=== PATIENT | male | born 1945 | race Caucasian/White ===

== ENCOUNTER 2017-07-18 07:02 | Day surgery (SDC) | payer OTHER ==
[~2017-07-18] VITALS: Ht 167.6 cm; Wt 85.9 kg
[~2017-07-18 07:02] MED LIST: ASPI1TAB PO; FINA5TAB2 PO; FLOM5CAP PO; HYDR25TAB PO; LOSA50TA20 PO; MELO7.5T7 PO; SIMV20TA2 PO
[2017-07-18] MEDS ORDERED: LR 1,000 ML IV SCH ×2 (07:15→09:30)
[2017-07-18] MEDS ORDERED: fentaNYL 100 MCG/2 ML INJECTION (J3010) As Ordered ONE (08:38)
[2017-07-18] MEDS ORDERED: PROPOFOL 200 MG/20 ML VIAL As Ordered ONE (08:38)
[2017-07-18] MEDS ORDERED: LIDOCAINE 2% INJ 100 MG/5 ML SDV (FOR ANES.) As Ordered ONE (08:38)
[2017-07-18] MEDS ORDERED: PHENYLephrine HCL 500 MCG/5 ML (100MCG/ML) SYRINGE (J2370) As Ordered ONE (08:38)
[2017-07-18] MEDS ORDERED: MIDAZOLAM INJ 2 MG/2 ML VIAL (J2250) As Ordered ONE (08:38)
[2017-07-18] MEDS ORDERED: ePHEDrine SULFATE 25 MG/5 ML(5MG/ML) SYRINGE As Ordered ONE (08:54)
[2017-07-18] MEDS ORDERED: ONDANSETRON 4MG/2ML VIAL (J2405) As Ordered ONE (08:57)
[2017-07-18] MEDS ORDERED: MEPERIDINE INJ 25 MG/ML VIAL (J2175) IV PRN (09:30)
[2017-07-18] MEDS ORDERED: ONDANSETRON 4MG/2ML VIAL (J2405) IV PRN (09:30)
[2017-07-18] MEDS ORDERED: fentaNYL 100 MCG/2 ML INJECTION (J3010) IV PRN (09:30)
[2017-07-18] MEDS ORDERED: METOCLOPRAMIDE INJ 10MG/2ML VIAL (J2765) IV PRN (09:30)
[2017-07-18] MEDS ORDERED: ACETAMINOPHEN TAB 650MG DOSE (2X325MG) PO PRN (09:30)
[2017-07-18] MEDS ORDERED: PERCOCET 5MG/325MG TAB PO PRN (09:30)
--- NOTE | 2017-07-18 09:36 | RO ---
DATE OF PROCEDURE: 07/18/2017 PREPROCEDURE DIAGNOSIS: Bladder stone. POSTPROCEDURE DIAGNOSIS: Bladder stone. PROCEDURE: Cystoscopy, cystolitholapaxy (between 2-5 cm), urethral meatal dilation. SURGEON: Dr. Piero Vieyra RPG PROGRAMMER ANALYST: None. ANESTHESIA: General. OPERATIVE INDICATIONS: This is a 71-year-old male who was found to have a large bladder stone on recent CT scan. It was recommended he be brought to the operating room today for the above listed procedure. DESCRIPTION OF PROCEDURE: The patient was brought to the operating room where general anesthesia was induced. Prophylactic antibiotics were infused. He was placed in dorsal lithotomy position, prepped and draped in the usual sterile fashion. At this point, I inserted a rigid cystoscope and examine the bladder thoroughly and there was a large bladder stone approximately 3-4 cm in size at the base of the bladder. There was no other abnormality seen within the bladder. Of note, the patient had trilobar benign prostatic hyperplasia and a median lobe. At this point, the cystoscope was traded out and I tried to go in with a nephroscope and this would not go into the urethral meatus because of the size. At this point, I had to dilate the urethral meatus to [id number]-[place] to get the nephroscope in. Once I dilated it with metal sounds, I then went in with the nephroscope and then I utilized the [employer] to fragment the stone into several smaller pieces and suction all the fragments out. Once all of the stone fragments were removed, the nephroscope was removed and I went back in with a rigid cystoscope. All of the stone fragments had been removed. There was a small amount of bleeding within the bladder but nothing significant. At this point, the bladder was emptied of all fluid and this marked the conclusion of the procedure. The patient was then taken out of dorsal lithotomy position, awakened from anesthesia and transported to the recovery room in stable condition. ESTIMATED BLOOD LOSS: 0 mL. COMPLICATIONS: None. SPECIMENS: Bladder stones. PLAN: The patient will followup in the clinic for a postoperative appointment to discuss stone results. TRI
[2017-07-18 10:30] VITALS: BP 128/80
== END 2017-07-18 10:49 | disposition home or self-care (01) ==
LOC: M SDC 07:02
PROVIDERS: ATTEND Urology
DX: N21.0 Calculus in bladder (principal); N35.9 Urethral stricture, unspecified; I10 Essential (primary) hypertension; E78.5 Hyperlipidemia, unspecified; K21.9 Gastro-esophageal reflux disease without esophagitis; N40.0 Benign prostatic hyperplasia without lower urinary tract symptoms; E11.9 Type 2 diabetes mellitus without complications; I35.0 Nonrheumatic aortic (valve) stenosis; Z79.899 Other long term (current) drug therapy; Z79.82 Long term (current) use of aspirin; Z87.81 Personal history of (healed) traumatic fracture
CPT/HCPCS: 52318; 82360; 88300; J2250; J2370; J2405; J3010

== ENCOUNTER → 2018-05-18 | Outpatient (REF) | payer OTHER ==
[2018-05-18 14:31] LABS: AMORPHOUS SEDIMENT MODERATE (NEGATIVE); APPEARANCE, URINE CLOUDY (CLEAR); BACTERIA, URINE AUTO 3+ (NEGATIVE); BILIRUBIN, URINE AUTO NEGATIVE (NEGATIVE); BLOOD, URINE BLOOD NEGATIVE (NEGATIVE); COLOR, URINE YELLOW (YELLOW); GLUCOSE, URINE (UA) AUTO NEGATIVE (NEGATIVE); KETONE, URINE AUTO NEGATIVE (NEGATIVE); LEUKOCYTE ESTERASE, URINE AUTO 3+ (NEGATIVE); MUCUS, URINE SMALL (NEGATIVE); NITRITE, URINE AUTO POSITIVE (NEGATIVE); PROTEIN, URINE AUTO NEGATIVE (NEGATIVE); RBC, URINE AUTO 5 /HPF (0-3); SPECIFIC GRAVITY URINE AUTO 1.017 (1.002-1.035); SQUAMOUS EPITHELIAL CELL UR AU 0 /HPF (0-6); UROBILINOGEN, URINE AUTO 0.2 mg/dL (0.0-2.0); WBC, URINE AUTO 86 /HPF (0-3)
== END ==
LOC: M SMT 13:38
DX: R39.15 Urgency of urination (principal); R35.0 Frequency of micturition
CPT/HCPCS: 81001

== ENCOUNTER → 2021-05-13 | Outpatient (REF) | payer MEDICARE, MEDICAID ==
[~2021-05-13] MED LIST changes: -ASPI1TAB PO; +ASPI81TA26 PO; +FLOM0.4C39 PO; -FLOM5CAP PO; +HYDR-3490 PO; -HYDR25TAB PO; -LOSA50TA20 PO; +LOSA50TA88 PO; -SIMV20TA2 PO; +SIMV20TA22 PO
[2021-05-13 13:50] LABS: PERCENT SATURATION 28.7 % (19.7-50.0)
== END ==
LOC: M LAB REF 11:12
PROVIDERS: ATTEND Internal Medicine
DX: D64.9 Anemia, unspecified (principal); I13.0 Hypertensive heart and chronic kidney disease with heart failure and stage 1 through stage 4 chronic kidney disease, or unspecified chronic kidney disease

== ENCOUNTER → 2021-06-09 | Outpatient (REF) | payer MEDICARE | LOC: M LAB REF 17:19 | PROVIDERS: ATTEND Internal Medicine Nephrology | DX: N18.31 Chronic kidney disease, stage 3a (principal) ==

== ENCOUNTER → 2023-03-17 | Outpatient (CLI) | payer OTHER, MEDICAID ==
[~2023-03-17] MED LIST changes: +ELIQ5TAB; +FAMO40TA3; +IRON65TA2 PO; +JARD1TAB3; +LANTINJ4; +LIDOCAINE 1% MDV 20ML VIAL As Ordered ONE; +LOSA50TA28 PO; -LOSA50TA88 PO; +METF-838; +METO1TAB87; +MIDO5TA; +TORS20TA2
[2023-03-17 11:25] VITALS: TEMP 97.9
[2023-03-17 12:42] VITALS: BP 169/99; O2SAT 95
[2023-03-17 13:22] LABS: HEMATOCRIT 39.3 % (42.0-52.0); HEMOGLOBIN 12.9 g/dl (13.5-17.5); MEAN CORPUSCULAR HGB CONC 32.8 g/dl (32.0-36.5); MEAN CORPUSCULAR VOLUME 106.5 fl (80.0-96.0); RED BLOOD COUNT 3.69 10^6/uL (4.30-6.10); WHITE BLOOD COUNT 2.2 10^3/uL (4.0-10.0)
[2023-03-17 14:14] LABS: PLATELET COUNT, AUTOMATED 88 10^3/uL (150-450)
[2023-03-17 14:21] LABS: ATYPICAL LYMPH 18 % (0-5); LYMPHOCYTES 34 % (16-44); MONOCYTES 20 % (0-5); NEUTROPHILS 28 % (28-66); PLATELET ESTIMATE DECREASED (NORMAL); POLYCHROMASIA 1+
== END ==
LOC: M IRPRO 11:07
PROVIDERS: ATTEND Internal Medicine Medical Oncology
DX: D72.819 Decreased white blood cell count, unspecified (principal)